=== PATIENT | female | born 1995 | race Caucasian/White ===

== ENCOUNTER 2016-08-27 21:12 | Emergency (ER) | payer MEDICAID ==
--- NOTE | ~2016-08-27 | ER ---
PATIENT'S NAME: FARRUKH SHAVER [facility] AGE: 20 Y [address] ROOM: [place] [address] LOCATION: [facility] ADMIT DATE: 08/27/2016 ER/Outpatient Report DISCHARGE DATE: 08/27/2016 FAMILY PHYSICIAN: Audie Piedra MD ATTENDING PHYSICIAN: Raymundo Grimaldo Time of Arrival: 2115 hours. Time of Exam: 2120 hours. CHIEF COMPLAINT: Sore of the sergio area. HISTORY OF PRESENT ILLNESS: The patient states that she saw Dr. Audie Piedra on 08/26/2016 in the clinic for sore that she has in the sergio area. He started her on Keflex and told her that when it developed a head then he would be able to drain it. The patient is 31 weeks' with her first and he did not want to drain it at this time. The patient comes in tonight because she feels as though it is ready to be drained. She says it is quite painful, has been doing sitz baths. States she has had three doses of Keflex. Denies any abdominal cramping or vaginal discharge. ALLERGIES: NO KNOWN ALLERGIES. CURRENT MEDICATIONS: On her chart and reviewed by me. PAST MEDICAL HISTORY: Benign. PAST SURGERIES: Negative. SOCIAL HISTORY: She smokes half pack per day. Denies use of drugs or alcohol. REVIEW OF SYSTEMS: All negative other than those mentioned in the HPI. PHYSICAL EXAMINATION: VITAL SIGNS: She weighed 107.5 kg. Blood pressure is 125/64, pulse of 114, respirations 18, temperature of 97.8, O2 saturation is 96% on room air. GENERAL: The patient is awake, alert, and oriented x4. SKIN: [place], warm, and dry. LUNGS: Respirations are even and nonlabored. PATIENT'S NAME: FARRUKH SHAVER [facility] AGE: 20 Y [address] ROOM: [place] [address] LOCATION: [facility] ADMIT DATE: 08/27/2016 ER/Outpatient Report DISCHARGE DATE: 08/27/2016 FAMILY PHYSICIAN: Audie Piedra MD ATTENDING PHYSICIAN: Raymundo Grimaldo : The patient has a large cyst of the sergio area, appears to be an infected Bartholin's cyst. No drainage at this time. It is still quite firm to touch, very painful. IMPRESSION: Infected cyst/wound. PLAN: Discussed with the patient that it is still too early to incise the area. Continue the sitz baths. Tylenol as needed for pain. Continue taking the Keflex, and follow up with Dr. Piedra on or Friday. She and her mother verbalized understanding. GALILEO BAUM APRN FOR MD MUNIR HALEY/arabella /[id number] d: 08/28/16 0552 t: 08/30/16 1813, OUTPATIENT REPORT
[2016-11-02] MEDS ORDERED: PRENATAL 1+1)(P1 TAB PO (20:01)
[2016-11-02] MEDS ORDERED: PROTONIX20 MG PO (20:01)
== END 2016-08-27 21:48 | disposition disaster alternative care site (69) ==
LOC: GMED 21:12
DX: N75.0 Cyst of Bartholin's gland (principal); F17.210 Nicotine dependence, cigarettes, uncomplicated

== ENCOUNTER 2016-11-06 17:19 | Observation (INO) | payer MEDICAID ==
[~2016-11-06] VITALS: Ht 170.2 cm; Wt 123.5 kg
[~2016-11-06 17:19] MED LIST: PRENATAL 1+1)(P1 TAB PO; PROTONIX20 MG PO
[2016-11-06 19:00] LABS: BILIRUBIN URINE NEGATIVE (NEGATIVE); BLOOD URINE NEGATIVE /UL (NEGATIVE); COLOR URINE YELLOW (YELLOW); GLUCOSE URINE NEGATIVE (NEGATIVE); KETONE URINE NEGATIVE (NEGATIVE); LEUKOCYTES URINE 25 /UL (NEGATIVE); NITRITE URINE NEGATIVE (NEGATIVE); PH URINE 6.5 (4.0-8.0); PROTEIN URINE 15 mg/dL (NEGATIVE); TURBIDITY URINE CLEAR (CLEAR); UROBILINOGEN URINE 1 mg/dL (NORMAL)
[2016-11-06 19:17] LABS: RBC URINE NEGATIVE #/HPF (NEGATIVE)
[2016-11-06 19:18] LABS: BACTERIA URINE MODERATE (NEGATIVE); MUCUS URINE 3+ (NEGATIVE)
== END 2016-11-06 23:47 | disposition disaster alternative care site (69) ==
LOC: GMED 17:19 → GOBS 17:35
PROVIDERS: Family Medicine; ADMIT Family Medicine
DX: O47.1 False labor at or after 37 completed weeks of gestation (principal); Z3A.40 40 weeks gestation of pregnancy
CPT/HCPCS: G0463; J7120

== ENCOUNTER 2016-11-11 06:09 | Inpatient (IN) | payer MEDICAID ==
[~2016-11-11] VITALS: Ht 170.2 cm; Wt 126.3 kg
--- NOTE | ~2016-11-11 | DS ---
PATIENT'S NAME: FARRUKH SMITH [facility] AGE: 20 Y [address] ROOM: [place] [address] LOCATION: [facility] ADMIT DATE: 11/11/2016 Discharge Summary DISCHARGE DATE: 11/13/2016 FAMILY PHYSICIAN: Alisia Piedra MD ATTENDING PHYSICIAN: Alisia Piedra DISCHARGE DIAGNOSES: 1. Term intrauterine . 2. Artificial rupture of membranes. 3. Vacuum-assisted delivery. DELIVERY NOTE: Please see delivery note in chart for details. HOSPITAL COURSE: The patient recovered very well. She had no complications. She was ambulating, tolerating regular diet prior to discharge and discharged home in stable condition. LAB AND RADIOLOGICAL TESTING: Please see chart for details. ALISIA PIEDRA MD CSM/lashelll /[id number] d: 12/04/16 0439 t: 12/04/16 1331, DISCHARGE SUMMARY
--- NOTE | ~2016-11-11 | OR ---
PATIENT'S NAME: FARRUKH SMITH [facility] AGE: 20 Y [address] ROOM: [address] [address] LOCATION: [facility] ADMIT DATE: 11/11/2016 OR/Procedure Report DISCHARGE DATE: 11/13/2016 FAMILY PHYSICIAN: Audie Piedra MD ATTENDING PHYSICIAN: Audie Piedra SURGEON: Maria Fernanda Castillo MD [employer]: DATE OF PROCEDURE: 11/11/2016 This is a patient of Dr. Audie Piedra. She is a 1, who I met when she was pushing. I first saw her about 6 p.m. She had been pushing for about an hour. She was still at about 0 to +1 station between contractions. She was pushing well, but contractions were not real strong and the Pitocin had been turned down during the course of her labor. Eventually, we did turn the Pitocin back up to 11 milliunits per minute. heart tones remained reassuring. She pushed over the next hour and then by the time she was approaching 3 hours of pushing, really she brought the vertex down between contractions that stop +2 to +3 station. The vertex continues to go further down the canal even without pushing. To me, this indicates that the contractions are now adequate and that a vaginal delivery would be preferable in this situation. She pushed for just over 3 hours and I talked with her about placing the vacuum and giving it a try. I got permission from the patient and her family. The vacuum was placed on the vertex. At the flexion point with one contraction, she pushed and delivered the vertex in the IRINEO position. She delivered over a second-degree laceration. The shoulders and body are easily delivered. Baby boy was placed on maternal abdomen. score of 8 and 9 are assigned. A baby boy, weighed 7 pounds and 7 ounces. A 3-vessel cord was noted. Placenta delivered spontaneously. The cervix and vagina were intact. The second-degree lacerations repaired in the usual fashion with 2-0 chromic. I did put some reinforcing sutures on the capsule around the rectal sphincter muscle. The patient has normal lochia. The cervix was intact. The vagina was intact. The patient tolerated the procedure well and her baby boy is doing well in recovery. MARIA FERNANDA H MD SOLO CASTILLO/arabella /[id number] d: 11/18/16 2243 t: 11/21/16 1911, OPERATIVE SUMMARY
[2016-11-11 07:22] LABS: BASOPHIL # 0.1 K/uL (0.0-0.2); BASOPHIL % 0.4 %; EOSINOPHIL # 0.3 K/uL (0.0-0.5); EOSINOPHIL % 1.6 %; HEMOGLOBIN 12.9 g/dL (11.0-15.0); IMMATURE GRANULOCYTE # 0.1 K/uL (0.0-0.3); IMMATURE GRANULOCYTE % 0.5 %; LYMPHOCYTE # 3.4 K/uL (0.8-4.0); LYMPHOCYTE % 20.5 %; MCH 29.9 pg (27.0-34.0); MCHC 33.9 gm/dL (32.0-36.5); MONOCYTE # 1.2 K/uL (0.0-1.0); MONOCYTE % 7.5 %; MPV 10.9 fl (9.4-12.4); NEUTROPHIL # (ANC) 11.5 K/uL (1.8-7.8); NEUTROPHIL % 69.5 %; NRBC % 0 /100WBC (0-0.00); PLATELET COUNT 313 K/uL (150-450); RBC 4.32 M/uL (3.50-5.00); RDW-CV 13.6 % (11.9-14.6)
[2016-11-11 07:24] LABS: WBC 16.6 K/uL (4.0-11.0)
[2016-11-11 10:03] LABS: BARBITURATE NEGATIVE (NEGATIVE); COCAINE NEGATIVE (NEGATIVE)
[2016-11-11 10:06] LABS: AMPHETAMINE NEGATIVE (NEGATIVE); OPIATES NEGATIVE (NEGATIVE)
[2016-11-11 21:43] LABS: PCO2 54 mmHg (35-45)
[2016-11-11 21:44] LABS: BICARBONATE 22.4 mmol/L (18.0-23.0); PO2 13 mmHg (80-90)
[2016-11-12 05:03] LABS: BASOPHIL # 0.1 K/uL (0.0-0.2); BASOPHIL % 0.2 %; EOSINOPHIL # 0.1 K/uL (0.0-0.5); EOSINOPHIL % 0.4 %; HEMOGLOBIN 10.1 g/dL (11.0-15.0); IMMATURE GRANULOCYTE # 0.2 K/uL (0.0-0.3); IMMATURE GRANULOCYTE % 0.9 %; LYMPHOCYTE % 12.3 %; MCH 30.1 pg (27.0-34.0); MCHC 33.6 gm/dL (32.0-36.5); MCV 89.6 fl (83.0-98.0); MONOCYTE % 8.3 %; MPV 10.7 fl (9.4-12.4); NEUTROPHIL # (ANC) 19.1 K/uL (1.8-7.8); NEUTROPHIL % 77.9 %; NRBC % 0 /100WBC (0-0.00); PLATELET COUNT 283 K/uL (150-450); RBC 3.36 M/uL (3.50-5.00); RDW-CV 13.5 % (11.9-14.6)
[2016-11-12 05:07] LABS: HEMATOCRIT 30.1 % (33.0-46.0); WBC 24.5 K/uL (4.0-11.0)
--- NOTE | 2016-11-12 05:23 | NUR ---
VSS. VOIDS WITHOUT DIFFICULTY. FUNDUS FIRM, -1, SMALL FLOW. LAST HAD 2 PERCOCET AT 0409.
--- NOTE | 2016-11-12 12:15 | NUR ---
Spoke to patients nurse Longoria. No concerns regarding patient and baby. Urine was clean. Introduced self/role to patient. Her mom and Aunt also present. She lives in [place]. is in halfway until Mar 2019. She stated she has all her needed baby care items. She is involved with WIC and has the information about early head start programs. This is her first baby. She hopes to breast feed but baby has issues with latching on. Mom and baby will continue to see Dr Audie Piedra. Covered post depression and gave her handout. Also gave her the list of resources in [place]. Reminded her to call Medicaid to get baby added. Has good supports. Denied any needs or questions.
--- NOTE | 2016-11-13 04:31 | NUR ---
vss, fundus firm, even, small flow. pt up ad chinyere, ambulated outside at times. 1 percocet given at 2133, motrin given at 0101. pt took jacuzzi last night. home today.
[2016-11-13] MEDS ORDERED: MOTRIN800 MG PO (11:54)
[2016-11-13] MEDS ORDERED: PERCOCET 5-3251 EACH PO (11:55)
--- NOTE | 2016-11-13 17:37 | NUR ---
Last VS: T:98.7 P:87 R: 14 BP: 107/61 Pain ratin-6. Last pain med: Percocet AND MOTRIN AT 1620 Medicated at: Effective: Yes Breasts: , Nipples: Fundus:, , Lochia: , Epis/Perineum: , , Voiding well: Significant event: DISMISSAL INSTRUCTIONS TYPED UP. MAY DISMISS AFTER 1800. UP AD ASAF. 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
== END 2016-11-13 19:00 | disposition disaster alternative care site (69) | DRG 775 ==
LOC: GOBM 06:09 → GOBS 06:09 → GOBM 06:10 → GOBS 06:10
PROVIDERS: ADMIT Family Medicine
PROC: 10D07Z6 Extraction of Products of Conception, Vacuum, Via Natural or Artificial Opening (ICD-10-PCS; principal; 2016-11-11)
PROC: 10907ZC Drainage of Amniotic Fluid, Therapeutic from Products of Conception, Via Natural or Artificial Opening (ICD-10-PCS; principal; 2016-11-11)
PROC: 0KQM0ZZ Repair Perineum Muscle, Open Approach (ICD-10-PCS; principal; 2016-11-11)
PROC: 3E033VJ Introduction of Other Hormone into Peripheral Vein, Percutaneous Approach (ICD-10-PCS; 2016-11-11)
DX: O48.0 Post-term pregnancy (principal); O99.824 Streptococcus B carrier state complicating childbirth; O70.1 Second degree perineal laceration during delivery; Z3A.41 41 weeks gestation of pregnancy; Z37.0 Single live birth
CPT/HCPCS: J2540; J2590; J3010; J7120

== ENCOUNTER 2016-12-14 13:38 | Emergency (ER) | payer MEDICAID ==
--- NOTE | ~2016-12-14 | ER ---
PATIENT'S NAME: RAMIRO SMITHRA Brian [facility] AGE: 20 Y [address] ROOM: [place] [address] LOCATION: ED ADMIT DATE: 12/14/2016 ER/Outpatient Report DISCHARGE DATE: 12/14/2016 FAMILY PHYSICIAN: Audie Piedra MD ATTENDING PHYSICIAN: Ashley Simon Time of Arrival: 1338 hours. Time of Evaluation: 1410 hours. CHIEF COMPLAINT: Low back pain. HISTORY OF PRESENT ILLNESS: This is a 20-year-old female who presents to the ER. She states she is having some low back pain that started approximately 4 days ago. She states she has no known recent injury to the back, just kind of woke up with this pain. She states it is located in her lower back, does radiate some pain into her right buttock. She has had no troubles with urination. No troubles with bowel movements. She denies any weakness, numbness, or tingling in the leg. She states that she has a history of two herniated disks in her back. She states that she has not seen her primary care physician for this pain. She has been taking some ibuprofen with minimal relief of her symptoms. ALLERGIES: NO KNOWN ALLERGIES. MEDICATIONS: Please see medication list in nurse's notes. PAST MEDICAL HISTORY: Herniated disks. PAST SURGERIES: None. SOCIAL HISTORY: She smokes cigarettes for the last 8 years. Denies any drug or alcohol use. REVIEW OF SYSTEMS: RESPIRATORY: No shortness of breath or cough. GI: No vomiting or diarrhea. : No difficulty with urination. MUSCULOSKELETAL: She is complaining of some low back pain with radiation into her right buttock. PATIENT'S NAME: RAMIRO SMITHRA Brian [facility] AGE: 20 Y [address] ROOM: [place] [address] LOCATION: ED ADMIT DATE: 12/14/2016 ER/Outpatient Report DISCHARGE DATE: 12/14/2016 FAMILY PHYSICIAN: Audie Piedra MD ATTENDING PHYSICIAN: Ashley Simon PHYSICAL EXAMINATION: VITAL SIGNS: Height 5 feet 7 inches stated, weight 114.3 kg taken, blood pressure is 153/67, pulse 79, respirations 16, temperature 98.4 degrees tympanically, saturations 97% on room air. Zeferino Coma score is 15. GENERAL: Alert, calm, well-developed female, in no acute distress. She is lying comfortably on the exam table with her legs crossed. HEENT: Head is normocephalic. She does display moist mucous membranes. LUNGS: Clear to auscultation bilaterally. HEART: Regular rate and rhythm. ABDOMEN: Soft, it is nontender. She has good bowel sounds throughout. EXTREMITIES: She has no clubbing or cyanosis. She does have some discomfort in her lower back with a right leg straight leg test. She has equal sensation bilaterally to lower extremities. She has equal strength bilaterally in lower extremities. She has no tenderness over the bony aspects of her cervical, thoracic, or lumbar spine with palpation. She does have some muscular spasm noted to her right paraspinous muscles. LABORATORY DATA: X-rays were done. IMPRESSION: Low back pain. ASSESSMENT AND PLAN: We will treat the patient conservatively with prednisone and Flexeril to use as directed. She needs to ice her lower back and do some gentle stretching. She needs to monitor her symptoms. I would like her to follow up with primary care physician if she is not improving. The patient understands and agrees with care. JES GOODRICH PA-C FOR ASHLEY SIMON, DO OLSON/arabella /[id number] d: 12/14/165 t: 12/25/16 0651, OUTPATIENT REPORT
[~2016-12-14 13:38] MED LIST changes: +MOTRIN800 MG PO; +PERCOCET 5-3251 EACH PO
== END 2016-12-14 14:33 | disposition disaster alternative care site (69) ==
LOC: GMED 13:38
DX: M54.5 Low back pain (principal); F17.210 Nicotine dependence, cigarettes, uncomplicated

== ENCOUNTER 2017-03-09 09:28 | Emergency (ER) | payer MEDICAID ==
--- NOTE | ~2017-03-09 | ER ---
PATIENT'S NAME: RAMIRO SMITHRA Brian [facility] AGE: 21 Y [address] ROOM: [place] [address] LOCATION: ED ADMIT DATE: 03/09/2017 ER/Outpatient Report DISCHARGE DATE: 03/09/2017 FAMILY PHYSICIAN: Audie Piedra MD ATTENDING PHYSICIAN: Mily Rizzo Time of Arrival: 0928 hours. Time of Evaluation/Seen: 0940 hours. IDENTIFICATION: A 21-year-old female. CHIEF COMPLAINT: Pain. HISTORY OF PRESENT ILLNESS: The patient complains of pain in her tailbone area. She said this was acute onset yesterday while just watching TV with her son. No fall or injury. Pain is worse with movement. She has a 4-month-old son delivered vaginally four months ago, 7 pounds 7 ounces with vacuum extraction. She is bottle feeding. She is not breast feeding. She has had no fever or chills. She has no numbness or tingling. She has no bowel or bladder problems. She has had a history of back pain with disk herniation but that pain was higher up. PAST MEDICAL HISTORY: ALLERGIES: NO KNOWN DRUG ALLERGIES. CURRENT MEDICATIONS: Denies. MEDICAL PROBLEMS: Lumbar disk disease in 2012, managed per Dr. Galvez with steroid injections. PAST SURGICAL HISTORY: Prior Surgeries: Denies other than the one vaginal delivery. SOCIAL HISTORY: The patient lives here in [place]. She works as a cage cashier. Tobacco use, half pack per day for 5 years. Alcohol use, denies. Drug use, denies. REVIEW OF SYSTEMS: All systems were reviewed and negative other than what is noted in the HPI. PATIENT'S NAME: FARRUKH SMITH [facility] AGE: 21 Y [address] ROOM: [place] [address] LOCATION: ED ADMIT DATE: 03/09/2017 ER/Outpatient Report DISCHARGE DATE: 03/09/2017 FAMILY PHYSICIAN: Audie Piedra MD ATTENDING PHYSICIAN: Mily Rizzo PHYSICAL EXAMINATION: VITAL SIGNS: Weight 120 kg. Blood pressure 130/61, pulse 94, respiratory rate is 20, temperature 97.6, and saturations 97%. GENERAL: A 21-year-old female, in obvious distress. HEENT: Unremarkable. LUNGS: Clear to auscultation. HEART: Regular rate and rhythm. ABDOMEN: Bowel sounds present. Soft, nondistended. No hepatosplenomegaly. No palpable masses. Nontender. SKIN: [place], warm, and dry. No lesions or rashes noted. NEUROLOGIC: The patient is alert and oriented x4. Cranial nerves 2 through 12 grossly intact. Motor strength 5/5 throughout. Sensation is intact to light touch. Negative straight leg raise. LABORATORY DATA AND IMAGING STUDIES: UA, negative. Urine-hCG, negative. CT scan of the lumbar spine; moderate degenerative disk disease at L5-S1 with prominent posterior osteophytic spurring at the distal margin that encroaches the thecal sac. EMERGENCY DEPARTMENT COURSE: The patient was given Toradol 30 mg IM and 1 Burtrum 5/325, and her pain improved significantly with this. IMPRESSION AND PLAN: 1. Acute low back pain. 2. Degenerative changes with significant bony spurring at L5-S1 encroaching on the thecal sac. Back pain handout provided. No heavy lifting, rest. Burtrum 5/325, 1 to 2 p.o. q.4-6 hours p.r.n. pain, dispensed 15 with 0 refills. Ice or heat. Follow up with Dr. Piedra or Dr. Galvez in 1 to 2 days. Follow up sooner if any problems or concerns. Follow up immediately if any neurological symptoms. The patient understands and agrees, and all questions have been answered. MILY RZIZO MD CAR/modl /[id number] d: 03/09/17 1514 t: 03/12/17 0856, OUTPATIENT REPORT
[2017-03-09 10:09] LABS: BILIRUBIN URINE NEGATIVE (NEGATIVE); BLOOD URINE NEGATIVE /UL (NEGATIVE); COLOR URINE YELLOW (YELLOW); GLUCOSE URINE NEGATIVE (NEGATIVE); KETONE URINE NEGATIVE (NEGATIVE); LEUKOCYTES URINE NEGATIVE /UL (NEGATIVE); NITRITE URINE NEGATIVE (NEGATIVE); PH URINE 6.5 (4.0-8.0); PROTEIN URINE NEGATIVE (NEGATIVE); SPEC GRAVITY URINE 1.005 (1.003-1.035); TURBIDITY URINE CLEAR (CLEAR); UROBILINOGEN URINE NORMAL (NORMAL)
== END 2017-03-09 10:50 | disposition disaster alternative care site (69) ==
LOC: GMED 09:28
PROVIDERS: Family Medicine
DX: M46.07 Spinal enthesopathy, lumbosacral region (principal); M51.37 Other intervertebral disc degeneration, lumbosacral region; F17.210 Nicotine dependence, cigarettes, uncomplicated
CPT/HCPCS: J1885